=== PATIENT | male | born 1935 | race Caucasian/White ===

== ENCOUNTER 2018-10-08 13:20 | Emergency (ER) | payer OTHER, BC ==
[2018-10-08 13:28] VITALS: BP 158/80; PULSE 84; TEMP 98.7; BMI 26.6
--- NOTE | 2018-10-08 13:32 | PDOC ---
History of Present Illness - General Chief Complaint: Injury Stated Complaint: LEFT RIBCAGE PAIN S/P TRIP AND FALL Time Seen by Provider: 10/08/18 13:21 - History of Present Illness Initial Comments: 10/08/18 13:54 Chief complaint: Pain left rib cage History of present illness: Patient was playing tennis yesterday fell on his left side, at which time his elbow "dug into" his left ribs, causing pain. Pain has persisted, especially with deep inspiration. There is been no fever/chills, shortness of breath, or cough. The patient took 2 doses of Advil yesterday, 200 mg each, with some relief. Review of systems: As above. Otherwise negative. Denies pain or injury to the head neck abdomen or extremities. Past medical history: Generally healthy male, left mastectomy for breast cancer and on tamoxifen therapy. Otherwise negative including cardiac and pulmonary disease Social/family history reviewed and noncontributory Physical exam: Alert and oriented well-developed well-nourished no acute distress cheerful and cooperative. There is no tachypnea or dyspnea, but mild splinting with deep inspiration due to left rib pain Afebrile, vital signs normal HEENT clear Neck supple without bruit mass or nodes. There is full range of motion without pain Chest clear, full breath sounds throughout bilaterally, no wheezes rales or rhonchi. No dullness to percussion at the bases. Mild splinting with deep inspiration. No tachypnea or dyspnea. Respiratory rate is normal and oxygen saturation is good, there is mild to moderate tenderness over the mid lateral left rib cage, without deformity or crepitus. There is a scar from his mastectomy, and the nipple is absent. CV regular without murmur rub or gallop pulses full and symmetric no JVD or edema no bruits Abdomen soft nontender without mass or organomegaly. No CVAT. Bowel sounds normal and nondistended Extremities no visible or palpable trauma Neurological intact Impression: Chest wall contusion, rule out fracture. No sign of pulmonary or cardiac injury Plan: X-ray and further management depending on results. Past History - Past Medical History Allergies/Adverse Reactions: Allergies Allergy/AdvReac Type Severity Reaction Status Date / Time No Known Allergies Allergy Verified 10/08/18 13:21 Home Medications: Ambulatory Orders Allopurinol 300 mg PO DAILY 10/08/18 Aspirin [Aspirin EC] 81 mg PO DAILY 10/08/18 Tamoxifen Citrate 20 mg PO DAILY 10/08/18 Cancer: Yes (LEFT BREAST CA) COPD: No Hypercholesterolemia: Yes - Suicide/Smoking/Psychosocial Hx Smoking History: Never smoked Have you smoked in the past 12 months: No Information on smoking cessation initiated: No Hx Alcohol Use: (occasional) *Physical Exam - Vital Signs Last Vital Signs Temp Pulse Resp BP Pulse Ox 98.7 F 84 18 158/80 98 10/08/18 13:20 10/08/18 13:20 10/08/18 13:20 10/08/18 13:20 10/08/18 13:20 Moderate Sedation - Procedure Monitoring Vital Signs: Procedure Monitoring Vital Signs Temperature 98.7 F 10/08/18 13:20 Pulse Rate 84 10/08/18 13:20 Respiratory Rate 18 10/08/18 13:20 Blood Pressure 158/80 10/08/18 13:20 O2 Sat by Pulse Oximetry (%) 98 10/08/18 13:20 Medical Decision Making - Medical Decision Making 10/08/18 14:42 X-ray reveals a nondisplaced fracture of the seventh rib, distally. The lungs and heart appear unaffected. The patient is in no clinical distress, with respiratory status stable. Informed of the fracture. Discussed deep breathing and use of incentive spirometer, with which he was furnished at discharge. He was instructed to use acetaminophen for the pain, and if this is ineffective, occasionally ibuprofen. He understands and agrees. He will follow-up with primary physician or return to the emergency room is instructed if he develops shortness of breath, fever or chills, or increased pain. Fully ambulatory and in no significant pain or other distress upon discharge with his to follow-up as directed *DC/Admit/Observation/Transfer Diagnosis at time of Disposition: Fracture, rib Qualifiers: Encounter type: initial encounter Rib fracture type: single rib Fracture type: closed Laterality: left Qualified Code(s): S22.32XA - Fracture of one rib, left side, initial encounter for closed fracture - Discharge Dispostion Disposition: HOME Condition at time of disposition: Stable Decision to Admit order: No - Referrals Referrals: Mee Santiago MD [Primary Care Provider] - 3 days - Patient Instructions Printed Discharge Instructions: DI for Rib Fracture Additional Instructions: Deep breathing exercises to prevent lung problems Take ibuprofen, Advil, or Motrin, but use the small as possible doses effective and only when pain is severe. Use acetaminophen or Tylenol, which is safer, for regular pain control. Rest, limited activity with the upper body, follow-up primary physician to monitor healing. - Post Discharge Activity
== END 2018-10-08 14:51 | disposition home or self-care (01) ==
LOC: FER 13:20
DX: S22.32XA Fracture of one rib, left side, initial encounter for closed fracture (principal); W18.39XA Other fall on same level, initial encounter; Y93.73 Activity, racquet and hand sports; Y92.312 Tennis court as the place of occurrence of the external cause; Z85.3 Personal history of malignant neoplasm of breast; E78.00 Pure hypercholesterolemia, unspecified
CPT/HCPCS: 71101-TC-LT-FY; 99283-25